=== PATIENT | male | born 1950 | race African-American/Black ===

== ENCOUNTER → 2016-09-02 | Outpatient (CLI) | payer MEDICARE, OTHER ==
[~2016-09-02] MED LIST: ALLO300T2 PO; METO-158 OR; MULT-778 OR; RIVA20TA PO; SILD100T57 OR; SIMV-8 OR
[2016-09-02 09:08] LABS: Urine RBC None Seen /hpf (0 - 3)
[2016-09-02 09:27] LABS: Basophils # (auto) 0 uL; Basophils % (auto) 0.5 % (0.0-2.0); Eosinophils # (auto) 0.3 uL; Eosinophils % (auto) 3.5 % (0.0-7.0); Hemoglobin 14.9 g/dL (13.5-17.5); Lymphocytes # (auto) 2.8 uL; Lymphocytes % (auto) 35.1 % (10.0-50.0); Mean Corpuscular Hemoglobin 31.5 pg (28.0-32.0); Mean Corpuscular Hgb Conc. 33.9 g/dL (32.0-36.0); Mean Corpuscular Volume 92.8 fL (80.0-100.0); Mean Platelet Volume 9.2 fL (7.4-10.4); Monocytes # (auto) 0.4 uL; Monocytes % (auto) 5.4 % (0.0-12.0); Neutrophils # (auto) 4.5 uL; Neutrophils % (auto) 55.5 % (37.0-80.0); Platelet Count (auto) 209 10^3/uL (140-450); Red Cell Distribution Width 13.8 % (11.6-16.0); White Blood Cell 8.1 10^3/uL (4.4-10.8)
[2016-09-02 09:56] LABS: Albumin 3.8 g/dL (3.4-5.0); BUN/Creatinine Ratio 11.7; Bilirubin, Total 0.7 mg/dL (0.2-1.0); Potassium 4.4 mmol/L (3.5-5.1); Total Protein 7.6 g/dL (6.4-8.2); Uric Acid 6.6 mg/dL (3.5-7.2)
[2016-09-02 10:03] LABS: Urine Color Yellow (Yellow)
[2016-09-02 10:04] LABS: Urine Glucose Normal (Normal)
[2016-09-02 10:06] LABS: Urine Bilirubin Negative (Negative); Urine Blood Negative /uL (Negative); Urine Ketone Negative (Negative); Urine Nitrite Negative (Negative); Urine Urobilinogen Normal (Negative)
[2016-09-02 10:08] LABS: Urine Ca Oxalate Crystal Few (None Seen)
[2016-09-02 10:09] LABS: Urine Squamous Epithelial Cell Few /hpf (<5)
== END | disposition home or self-care (01) ==
LOC: LAB 08:33
DX: R97.20 Elevated prostate specific antigen [PSA] (principal); E11.21 Type 2 diabetes mellitus with diabetic nephropathy; Z12.11 Encounter for screening for malignant neoplasm of colon; M10.079 Idiopathic gout, unspecified ankle and foot
CPT/HCPCS: 36415; 80053; 80061; 81001; 82043; 82270; 83036; 84153; 84154; 84443; 84550; 85025

== ENCOUNTER → 2016-10-27 | Outpatient (CLI) | payer MEDICARE, OTHER | END | disposition home or self-care (01) | LOC: LAB 11:00 | PROVIDERS: ATTEND Urology | DX: R97.20 Elevated prostate specific antigen [PSA] (principal) ==

== ENCOUNTER → 2017-05-12 | Outpatient (CLI) | payer MEDICARE, OTHER ==
[2017-05-13 08:06] LABS: PSA Free 1.86 ng/mL; Prostate Specific Antigen 7.2 ng/mL (0.0-4.0)
== END | disposition home or self-care (01) ==
LOC: LAB 08:59
PROVIDERS: ATTEND Urology
DX: N40.0 Benign prostatic hyperplasia without lower urinary tract symptoms (principal); R97.20 Elevated prostate specific antigen [PSA]
CPT/HCPCS: 84153; 84154

== ENCOUNTER 2017-06-16 08:26 | Day surgery (SDC) | payer MEDICARE, OTHER ==
[2017-06-12 12:48] LABS: Basophils # (auto) 0.1 uL; Basophils % (auto) 0.8 % (0.0-2.0); Eosinophils # (auto) 0.3 uL; Eosinophils % (auto) 3.2 % (0.0-7.0); Hematocrit 47.5 % (41.0-53.0); Hemoglobin 16.2 g/dL (13.5-17.5); Lymphocytes # (auto) 2.7 uL; Lymphocytes % (auto) 31.1 % (10.0-50.0); Mean Corpuscular Hemoglobin 31.8 pg (28.0-32.0); Mean Corpuscular Volume 93.5 fL (80.0-100.0); Mean Platelet Volume 11.7 fL (6.9-10.8); Monocytes # (auto) 0.7 uL; Monocytes % (auto) 7.5 % (0.0-12.0); Neutrophils % (auto) 57.4 % (37.0-80.0); Platelet Count (auto) 190 10^3/uL (140-450); Red Cell Distribution Width 13.4 % (11.8-14.3); White Blood Cell 8.7 10^3/uL (4.4-10.8)
[2017-06-12 12:53] LABS: Urine Bilirubin Negative (Negative); Urine Blood Negative /uL (Negative); Urine Color Yellow (Yellow); Urine Glucose Normal (Normal); Urine Ketone Negative (Negative); Urine Mucus FEW (None Seen); Urine Nitrite Negative (Negative); Urine RBC 1 /hpf (0 - 3); Urine Squamous Epithelial Cell FEW /hpf (<5); Urine Urobilinogen Normal (Negative)
[2017-06-12 13:08] LABS: Albumin 4.1 g/dL (3.4-5.0); BUN/Creatinine Ratio 16.1; Calcium 9.7 mg/dL (8.5-10.1); INR 0.98 (0.9-1.15); Partial Thromboplastin Time 27.5 sec (22.64-33.71); Potassium 4.1 mmol/L (3.5-5.1); Prothrombin Time 10.7 sec (9.37-12.3)
[2017-06-12 13:11] LABS: Bilirubin, Total 1.3 mg/dL (0.2-1.0); Total Protein 8.4 g/dL (6.4-8.2)
[~2017-06-16] VITALS: Ht 193 cm; Wt 126.1 kg
[~2017-06-16 08:26] MED LIST changes: -ALLO300T2 PO; +CHOL1000 PO; +COEN200C11 PO; +INSUINJ18 SC; +METF-370 PO; +OMEG100078 PO; -SILD100T57 OR; +SOTA80TA PO
[2017-06-16] MEDS ORDERED: ceFAZolin 1GM/50ML 50 ML IV ONE (09:58)
[2017-06-16] MEDS ORDERED: fentaNYL CITRATE 100 MCG/2 ML VL ONE (12:08)
[2017-06-16] MEDS ORDERED: MIDAZOLAM HCL 1MG/1ML-2 ML VIAL ONE (12:08)
[2017-06-16] MEDS ORDERED: KETOROLAC TROMETH 30 MG/ML 1ML VIAL ONE (12:18)
[2017-06-16] MEDS ORDERED: PROPOFOL 10 MG/ML 20 ML IV ONE (12:18)
[2017-06-16] MEDS ORDERED: DEXAMETHASONE SOD PHOS 10MG/1ML VIAL INJ ONE (12:18)
[2017-06-16] MEDS ORDERED: MIDAZOLAM HCL 1MG/1ML-2 ML VIAL IV PRN (12:45)
[2017-06-16] MEDS ORDERED: ACCU-CHEK COMFORT CURVE STRIP VI ONE (12:45)
[2017-06-16] MEDS ORDERED: LABETALOL HCL 5 MG/ML 4ML SYRINGE IV PRN (12:45)
[2017-06-16] MEDS ORDERED: ONDANSETRON HCL 4 MG/2 ML VIAL IV ONE (12:45)
[2017-06-16] MEDS ORDERED: KETOROLAC TROMETH 30 MG/ML 1ML VIAL IV ONE (12:45)
[2017-06-16] MEDS ORDERED: HYDROmorphone HCL 2 MG/ML VL IV PRN (12:45)
[2017-06-16] MEDS ORDERED: hydrALAZINE HCL 20 MG/ML VL IV PRN (12:45)
[2017-06-16 13:20] VITALS: BP 111/86
[2017-06-16] MEDS ORDERED: MORPHINE SULF INJ 2 MG/ML SYRINGE 1ML IV ONE (14:00)
== END 2017-06-16 13:20 | disposition home or self-care (01) ==
LOC: SUR 08:26
PROVIDERS: ATTEND Urology
DX: R97.20 Elevated prostate specific antigen [PSA] (principal); Z95.0 Presence of cardiac pacemaker; I10 Essential (primary) hypertension; I48.91 Unspecified atrial fibrillation; E11.9 Type 2 diabetes mellitus without complications; I82.409 Acute embolism and thrombosis of unspecified deep veins of unspecified lower extremity; Z98.52 Vasectomy status; E66.9 Obesity, unspecified; Z68.33 Body mass index [BMI] 33.0-33.9, adult; E78.5 Hyperlipidemia, unspecified
CPT/HCPCS: 36415; 55706; 80053; 81001; 82962; 85025; 85610; 85730; J0690; J1100; J1885; J2250; J2704; J3010

== ENCOUNTER → 2021-04-15 | Outpatient (CLI) | payer MEDICARE, OTHER ==
[~2021-04-15] MED LIST changes: +CHOL-17 PO; -CHOL1000 PO
== END | disposition home or self-care (01) ==
LOC: LAB 12:54
PROVIDERS: ATTEND Nurse Practitioner Family
DX: N39.0 Urinary tract infection, site not specified (principal); R30.0 Dysuria
CPT/HCPCS: 87086

== ENCOUNTER 2021-05-02 13:48 | Emergency (ER) | payer MEDICARE, OTHER ==
[~2021-05-02] VITALS: Ht 190.5 cm; Wt 118.8 kg
[2021-05-02 13:55] VITALS: BP 142/71
[2021-05-02 14:36] LABS: Urine Bacteria NONE SEEN /hpf (None Seen); Urine Blood 3+ /uL (Negative); Urine Mucus FEW (None Seen); Urine Specific Gravity 1.019 (1.001-1.035); Urine WBC 287 /hpf (0 - 3); Urine WBC Clumps PRESENT /hpf (None Seen)
[2021-05-02] MEDS ORDERED: cefTRIAXone W LIDOCAINE 1 GM IM IM ONE (16:45)
[2021-05-02] MEDS ORDERED: cefTRIAXone SOD 1,000 MG VL ONE (17:32)
== END 2021-05-02 18:03 | disposition home or self-care (01) ==
LOC: ER 13:48
DX: N20.0 Calculus of kidney (principal); N39.0 Urinary tract infection, site not specified; E11.9 Type 2 diabetes mellitus without complications; I10 Essential (primary) hypertension
CPT/HCPCS: 74176; 81001; 93005; 96372; 99285; J0696

== ENCOUNTER 2021-08-10 12:12 | Emergency (ER) | payer MEDICARE, OTHER ==
[~2021-08-10] VITALS: Ht 190.5 cm; Wt 114.3 kg
[2021-08-10 13:08] LABS: Urine Bacteria NONE SEEN /hpf (None Seen); Urine Blood 3+ /uL (Negative); Urine Specific Gravity 1.018 (1.001-1.035); Urine WBC 3 /hpf (0 - 3)
[2021-08-10 13:16] VITALS: BP 126/74
[2021-08-10] MEDS ORDERED: TAM04C PO (16:07)
[2021-08-10] MEDS ORDERED: CIPR-173 PO (16:07)
== END 2021-08-10 16:15 | disposition home or self-care (01) ==
LOC: ER 12:12
DX: N39.0 Urinary tract infection, site not specified (principal); N20.0 Calculus of kidney; N28.1 Cyst of kidney, acquired; E11.9 Type 2 diabetes mellitus without complications; I10 Essential (primary) hypertension
CPT/HCPCS: 74176; 81001

== ENCOUNTER 2025-04-28 09:16 | Inpatient (IN) | payer OTHER, MEDICARE ==
[~2025-04-28] VITALS: Ht 190.5 cm; Wt 125.8 kg
[~2025-04-28 09:16] MED LIST changes: +CIPR-173 PO; -COEN200C11 PO; +COEN200C25 PO; +OMEG-20 PO; -OMEG100078 PO; -SIMV-8 OR; +SIMV20TA20 OR; +TAMS-35 PO
[2025-04-28] MEDS: SODIUM CHLORIDE 0.9% 1,000 ML IV ONE (09:45)
--- NOTE | 2025-04-28 10:08 | ED.PDOC ---
General HPI Comments Be uLcio is a 75-year-old male, with past medical history of prostate ca. (2018), HTN, afib, DVT, pacemaker, and DM2. The patient came to the ED with chief complain of 1 day of hematuria, red dark urine "wine color" with clots associated with mild burning sensation after voiding. Today, the patient reports the urine continues with blood clots, this prompted his visit to the ED. The patient also reports he is on blood thinners: Xarelto. The patient denies fever, chills, diarrhea, vomit, back pain, abdominal pain, trauma or other symptoms. In the ED, BP: 145/79mmHg, Hr: 68bpm. Urology consult was placed, urology requested 3 way Rich catheter with continue irrigation. The patient will be admitted for further management. Chief Complaint: Urinary Time Seen by MD: 09:22 Primary Care Provider: MIKE Reviewed notes: Nurses Notes, Medications, Allergies Allergies: Coded Allergies: NO KNOWN ALLERGIES (Unverified , 06/12/17) Home Meds Active Scripts Tamsulosin Hcl (Flomax) 0.4 Mg Cap, 0.4 MG PO DAILY for 20 Days, #20 CAP Prov:NORA MEDLEY 08/10/21 Ciprofloxacin Hcl (Cipro) 500 Mg Tab, 500 MG PO BID for 10 Days, #20 TAB Prov:NORA MEDLEY 08/10/21 Reported Medications Cholecalciferol (Vitamin D3) 1,000 Unit Tab, 1000 UNIT PO DAILY, TAB 06/12/17 [place]-3 Fatty Acids (FISH OIL) 1,000 Mg Cap, 1000 MG PO BID, CAP 06/12/17 Coenzyme Q10 (Coq10) 200 Mg Cap, 200 MG PO DAILY, CAP 06/12/17 Sotalol Hcl (Sotalol Hcl) 80 Mg Tab, 0.5 TAB PO TID, #60 TAB 5 Refills 06/12/17 Insulin Aspart Protamine & Asp (Novolog Mix 70/30 Prefill (70-30) 100 Unit/ml) 1 Inj Inj, 30 UNITS SC QPM, INJ 06/12/17 Insulin Aspart Protamine & Asp (Novolog Mix 70/30 Prefill (70-30) 100 Unit/ml) 1 Inj Inj, 36 UNITS SC QAM, INJ 06/12/17 Metformin Hydrochloride (Metformin Hcl) 500 Mg Tab, 500 MG PO IBID for 30 Days, MG 06/12/17 Rivaroxaban (XARELTO) 20 Mg Tab, 1 TAB PO 4XWEEKLY, #30 TAB 11 Refills 04/16/15 Multiple Vitamins W/ Minerals (MULTI FOR HIM) For Him Cap, 1 HIM OR DAILY 04/13/12 Simvastatin (Simvastatin) 20 Mg Tab, 20 MG OR DAILY 04/13/12 Metoprolol Tartrate (Metoprolol Tartrate) 50 Mg Tab, 50 MG OR BID 04/13/12 Information Source: Patient Mode of Arrival: Ambulatory Severity: Moderate Timing: Days Duration: Since onset Onset: Spontaneous Symptoms: Dysuria, Hematuria Past Medical History PAST MEDICAL HISTORY: AFIB, DM, HTN Past Medical History (Other): Prostate ca (2018) DVT (1996) Surgical History: Pacemaker Surgical History (Other): Pacemaker Family History Family History: Reviewed,noncontributory to illness Social History Smoker: Non-Smoker Alcohol: Occasionally Drugs: Denies Drug Use Lives In: Home Constitutional: denies: chills, diaphoresis, fatigue, fever, malaise, sweats, weakness, others EENTM: denies: blurred vision, double vision, ear bleeding, ear discharge, ear drainage, ear pain, ear ringing, eye pain, eye redness, hearing loss, mouth pain, mouth swelling, nasal discharge, nose bleeding, nose congestion, nose pain, photophobia, tearing, throat pain, throat swelling, voice changes, others Respiratory: denies: cough, hemoptysis, orthopnea, SOB at rest, shortness of breath, SOB with excertion, stridor, wheezing, others Cardiovascular: denies: chest pain, dizzy spells, diaphoresis, Dyspnea on exertion, edema, irregular heart beat, left arm pain, lightheadedness, palpitations, PND, syncope, others Gastrointestinal: denies: abdomen distended, abdominal pain, blood streaked bowels, constipated, diarrhea, dysphagia, difficulty swallowing, hematemesis, melena, nausea, poor appetite, poor fluid intake, rectal bleeding, rectal pain, vomiting, others Genitourinary: reports: dysuria, hematuria (dark red "Wine-like" color with blood clots) Neurological: denies: dizziness, fainting, headache, left sided numbness, left sided weakness, numbness, paresthesia, pre-existing deficit, right sided numbness, right sided weakness, seizure, speech problems, tingling, tremors, weakness, others Musculoskeletal: denies: back pain, gout, joint pain, joint swelling, muscle pain, muscle stiffness, neck pain, others Integumetry: denies: bruises, change in color, change in hair/nails, dryness, laceration, lesions, lumps, rash, wounds, others Allergic/Immunocompromised: denies: Difficulty Healing, Frequent Infections, Hives, Itching, others Hematologic/Lymphatic: denies: anemia, blood clots, easy bleeding, easy bruising, swollen glands, others Endocrine: denies: excessive hunger, excessive sweating, excessive thirst, excessive urination, flushing, intolerance to cold, intolerance to heat, unexplained weight gain, unexplained weight loss, others Psychiatric: denies: anxiety, bipolar disorder, depression, hopeless, panic disorder, schizophrenia, sleepless, suicidal, others Physical Exam Exam Comments Alert, oriented x3. General Appearance: No Apparent Distress HEENT: Normal ENT Inspection Neck: Full Range of Motion, Non-Tender, Normal, Normal Inspection Respiratory: Chest Non-Tender, Lungs Clear, No Accessory Muscle Use, No Respiratory Distress, Normal Breath Sounds Cardiovascular: No Edema, No JVD, No Murmur, No Gallop, Normal Peripheral Pul ses, Regular Rate/Rhythm Breast Exam: Deferred Gastrointestinal: No Organomegaly, Non Tender, No Pulsatile Mass, Normal Bowel Sounds, Soft Genitalia: Deferred Pelvic: Deferred Rectal: Deferred Extremities: No calf tenderness, Normal capillary refill, Normal inspection, Normal range of motion, Non-tender, No pedal edema, Other (wearing compressive stockings. ) Musculoskeletal : Apperance: Normal Neurologic: Alert, shield runner II-XII nml as Tested, No Motor Deficits, Normal Affect, Normal Mood, No Sensory Deficits Cerebellar Function: Normal Reflexes: Normal Skin: Dry, Normal Color, Warm Lymphatic: No Adenopathy Was a procedure done? Was a procedure done?: No Differential Diagnosis Kidney stone (Female): N/A Kidney stone (Male): Urolithiasis, Urinary tract infection, Other (prostate ca.) Penile/Scrotal: N/A Urinary Problem (Male): Prostatitis, N/A Urinary Problem (Female): N/A X-Ray, Labs, Meds, VS Vital Signs Date Time Temp Pulse Resp B/P (MAP) Pulse Ox O2 Delivery O2 Flow Rate FiO2 04/28/25 10:10 97.8 65 18 134/79 (97) 96 97.8 04/28/25 10:10 65 04/28/25 09:17 97.9 68 18 145/79 98 97.9 Lab Test 04/28/25 10:01 Range/Units White Blood Count 6.9 4.4-10.8 10^3/uL Red Blood Count 4.67 4.5-5.90 10^6/uL Hemoglobin 14.5 13.5-17.5 g/dL Hematocrit 43.2 41.0-53.0 % Mean Corpuscular Volume 92.5 80.0-100.0 fL Mean Corpuscular Hemoglobin 31.1 28.0-32.0 pg Mean Corpuscular Hemoglobin Concent 33.6 32.0-36.0 g/dL Red Cell Distribution Width 13.5 11.8-14.3 % Platelet Count 177 140-450 10^3/uL Mean Platelet Volume 8.2 6.9-10.8 fL Neutrophils (%) (Auto) 60.2 37.0-80.0 % Lymphocytes (%) (Auto) 26.5 10.0-50.0 % Monocytes (%) (Auto) 8.0 0.0-12.0 % Eosinophils (%) (Auto) 4.1 0.0-7.0 % Basophils (%) (Auto) 1.2 0.0-2.0 % Neutrophils # (Auto) 4.2 1.6-8.6 10 ^3/uL Lymphocytes # (Auto) 1.8 0.4-5.4 10 ^3/uL Monocytes # (Auto) 0.6 0-1.3 10 ^3/uL Eosinophils # (Auto) 0.3 0-0.8 10 ^3/uL Basophils # (Auto) 0.1 0-0.2 10 ^3/uL Nucleated Red Blood Cells 0.0 % Sodium Level 143 136-145 mmol/L Potassium Level 4.2 3.5-5.1 mmol/L Chloride Level 103 98-107 mmol/L Carbon Dioxide Level 31 20-31 mmol/L Anion Gap 9 5-15 Blood Urea Nitrogen 11 9-23 mg/dL Creatinine 1.20 0.700-1.30 mg/dL Glomerular Filtration Rate Calc 63 >90 mL/min BUN/Creatinine Ratio 9.2 L 10.0-20.0 Serum Glucose 93 74-106 mg/dL Calcium Level 9.7 8.7-10.4 mg/dL Free Prostate Specific Antigen Pending Percent Free Prostate Specific Ag Pending Prostate Specific Antigen Total Pending Current Medications Medications (Trade) Dose Ordered Sig/Eduard Route Start Time Stop Time Status Last Admin Sodium Chloride 1,000 ml @ 1,000 mls/hr Q1H ONCE IV 04/28/25 09:45 04/28/25 11:09 DC 04/28/25 09:45 X-Ray, Labs, Meds, VS Comment 10:25 The patient was re-evaluated. Alert, oriented x3 VS: 134/79mmHg. HR: 65bpm Labs results are still pending at this time. 11:30 The patient was re-evaluated. Alert, oriented x3 Urinary results are still pending at this time. The patient will be admitted for further assessment and management. Time of 1ST Reevaluation: :25 Reevaluation 1ST: Unchanged Patient Education/Counseling: Diagnosis, Treatment, Prognosis, Need For Follow Up Family Education/Counseling: No Family Present SEPSIS Sepsis Screen Date sepsis recognized/suspect: Apr 28, 2025 Time Sepsis recognized/suspect: 918 Recent Procedure: No On Antibiotic Therapy: No Respiratory Rate >20: No Heart Rate >90: No Temp<36 C (96.8 F) or >38.3 C: No SBP <90 or MAP <65 mmHG: No New Acute Mental Status Change: No Is the patient on CPAP, BIPAP,: No Physician Orders Urinalysis (04/28/25 09:39) * Urology Consult (04/28/25 09:39) 3 Way Rich QSHIFT (04/28/25 09:56) Ct Ab Pel Wo Con-No Oral Or Iv (04/28/25 11:05) Psa Total+% Free (04/28/25 11:05) Vital Signs Date Time Temp Pulse Resp B/P (MAP) Pulse Ox O2 Delivery O2 Flow Rate FiO2 04/28/25 10:10 97.8 65 18 134/79 (97) 96 97.8 04/28/25 10:10 65 04/28/25 09:17 97.9 68 18 145/79 98 97.9 Laboratory Tests Test 04/28/25 10:01 White Blood Count 6.9 10^3/uL (4.4-10.8) Medications Medications Dose Ordered Sig/Eduard Route Start Time Stop Time Status Last Admin Dose Admin Sodium Chloride 1,000 ml @ 1,000 mls/hr Q1H ONCE IV 04/28/25 09:45 04/28/25 11:09 DC 04/28/25 09:45 Departure 1 Departure Time of Disposition: 10:27 Impression: Primary Impression: Hematuria Disposition: ADMITTED INPATIENT Admit to: Med Surg Condition: Good Comments Goals of care discussed with the patient > 35 min. Discussed plan of care with Dr. Stein Code status: Full code PCP: Dr. Nelson, Urologist: Dr. Dow/ AMADO Blum. Plan discussed with: Patient, the patient agrees with the admission plan. Critical Care Note Critical Care Time?: No Stability Stability form required: No Heart Score Heart Score: Heart Score Response (Comments) Value History N/A 0 EKG N/A 0 Age N/A 0 Risk Factors N/A 0 Troponin N/A 0 Total 0 MALGORZATA GARCIA RESIDENT Apr 28, 2025 10:08
[2025-04-28 10:24] LABS: Hematocrit 43.2 % (41.0-53.0); Hemoglobin 14.5 g/dL (13.5-17.5); Mean Corpuscular Hemoglobin 31.1 pg (28.0-32.0); Mean Corpuscular Volume 92.5 fL (80.0-100.0); Nucleated Red Blood Cells % 0.0 %
[2025-04-28 10:29] LABS: Chloride 103 mmol/L (98-107); Potassium 4.2 mmol/L (3.5-5.1); Sodium 143 mmol/L (136-145)
[2025-04-28 10:30] LABS: Anion Gap 9 (5-15); Carbon Dioxide 31 mmol/L (20-31)
[2025-04-28 10:31] LABS: Calcium 9.7 mg/dL (8.7-10.4)
[2025-04-28 10:36] LABS: BUN/Creatinine Ratio 9.2 (10.0-20.0); Blood Urea Nitrogen 11 mg/dL (9-23); Glucose 93 mg/dL (74-106)
--- NOTE | 2025-04-28 11:10 | DVHINCON2 ---
Date of service: Apr 28, 2025 Referring Physician Hospitalist Reason for Consultation Gross hematuria History of Present Illness Patient known to me for history of prostate cancer, s/p Brachytherapy 2017. He was last seen in clinic in October 2024. He is on Xarelto. 75-year-old male, with past medical history of prostate ca. (2018), HTN, afib, DVT, pacemaker, and DM2. The patient came to the ED with chief complain of 1 day of hematuria, red dark urine "wine color" with clots associated with mild burning sensation after voiding. Today, the patient reports the urine continues with blood clots, this prompted his visit to the ED. The patient also reports he is on blood thinners: Xarelto. The patient denies fever, chills, diarrhea, vomit, back pain, abdominal pain, trauma or other symptoms. In the ED, BP: 145/79mmHg, Hr: 68bpm. Urology consult was placed, urology requested 3 way Rich catheter with continue irrigation. The patient will be admitted for further management. Chief Complaint: Urinary Primary Care Provider: MIKE Reviewed notes: Nurses Notes, Medications, Allergies Allergies: Coded Allergies: NO KNOWN ALLERGIES (Unverified , 06/12/17) Home Meds Active Scripts Tamsulosin Hcl (Flomax) 0.4 Mg Cap, 0.4 MG PO DAILY for 20 Days, #20 CAP Prov:NORA MEDLEY 08/10/21 Ciprofloxacin Hcl (Cipro) 500 Mg Tab, 500 MG PO BID for 10 Days, #20 TAB Prov:NORA MEDLEY 08/10/21 Reported Medications Cholecalciferol (Vitamin D3) 1,000 Unit Tab, 1000 UNIT PO DAILY, TAB 06/12/17 [place]-3 Fatty Acids (FISH OIL) 1,000 Mg Cap, 1000 MG PO BID, CAP 06/12/17 Coenzyme Q10 (Coq10) 200 Mg Cap, 200 MG PO DAILY, CAP 06/12/17 Sotalol Hcl (Sotalol Hcl) 80 Mg Tab, 0.5 TAB PO TID, #60 TAB 5 Refills 06/12/17 Insulin Aspart Protamine & Asp (Novolog Mix 70/30 Prefill (70-30) 100 Unit/ml) 1 Inj Inj, 30 UNITS SC QPM, INJ 06/12/17 Insulin Aspart Protamine & Asp (Novolog Mix 70/30 Prefill (70-30) 100 Unit/ml) 1 Inj Inj, 36 UNITS SC QAM, INJ 06/12/17 Metformin Hydrochloride (Metformin Hcl) 500 Mg Tab, 500 MG PO IBID for 30 Days, MG 06/12/17 Rivaroxaban (XARELTO) 20 Mg Tab, 1 TAB PO 4XWEEKLY, #30 TAB 11 Refills 04/16/15 Multiple Vitamins W/ Minerals (MULTI FOR HIM) For Him Cap, 1 HIM OR DAILY 04/13/12 Simvastatin (Simvastatin) 20 Mg Tab, 20 MG OR DAILY 04/13/12 Metoprolol Tartrate (Metoprolol Tartrate) 50 Mg Tab, 50 MG OR BID 04/13/12 Information Source: Patient Mode of Arrival: Ambulatory Severity: Moderate Timing: Days Duration: Since onset Onset: Spontaneous Symptoms: Dysuria, Hematuria Past Medical History AFIB, DM, HTN, Past Medical History (Other): Prostate ca (2017) DVT (1996) Past Surgical History Prostate biopsy Brachytherapy Pacemaker Allergies: Coded Allergies: NO KNOWN ALLERGIES (Unverified , 06/12/17) Home Meds Active Scripts Tamsulosin Hcl (Flomax) 0.4 Mg Cap, 0.4 MG PO DAILY for 20 Days, #20 CAP Prov:NORA MEDLEY 08/10/21 Ciprofloxacin Hcl (Cipro) 500 Mg Tab, 500 MG PO BID for 10 Days, #20 TAB Prov:NORA MEDLEY 08/10/21 Reported Medications Cholecalciferol (Vitamin D3) 1,000 Unit Tab, 1000 UNIT PO DAILY, TAB 06/12/17 [place]-3 Fatty Acids (FISH OIL) 1,000 Mg Cap, 1000 MG PO BID, CAP 06/12/17 Coenzyme Q10 (Coq10) 200 Mg Cap, 200 MG PO DAILY, CAP 06/12/17 Sotalol Hcl (Sotalol Hcl) 80 Mg Tab, 0.5 TAB PO TID, #60 TAB 5 Refills 06/12/17 Insulin Aspart Protamine & Asp (Novolog Mix 70/30 Prefill (70-30) 100 Unit/ml) 1 Inj Inj, 30 UNITS SC QPM, INJ 06/12/17 Insulin Aspart Protamine & Asp (Novolog Mix 70/30 Prefill (70-30) 100 Unit/ml) 1 Inj Inj, 36 UNITS SC QAM, INJ 06/12/17 Metformin Hydrochloride (Metformin Hcl) 500 Mg Tab, 500 MG PO IBID for 30 Days, MG 06/12/17 Rivaroxaban (XARELTO) 20 Mg Tab, 1 TAB PO 4XWEEKLY, #30 TAB 11 Refills 04/16/15 Multiple Vitamins W/ Minerals (MULTI FOR HIM) For Him Cap, 1 HIM OR DAILY 04/13/12 Simvastatin (Simvastatin) 20 Mg Tab, 20 MG OR DAILY 04/13/12 Metoprolol Tartrate (Metoprolol Tartrate) 50 Mg Tab, 50 MG OR BID 04/13/12 Review of Systems Constitutional: denies: chills, diaphoresis, fatigue, fever, malaise, sweats, weakness, others EENTM: denies: blurred vision, double vision, ear bleeding, ear discharge, ear drainage, ear pain, ear ringing, eye pain, eye redness, hearing loss, mouth pain, mouth swelling, nasal discharge, nose bleeding, nose congestion, nose pain, photophobia, tearing, throat pain, throat swelling, voice changes, others Respiratory: denies: cough, hemoptysis, orthopnea, SOB at rest, shortness of breath, SOB with excertion, stridor, wheezing, others Cardiovascular: denies: chest pain, dizzy spells, diaphoresis, Dyspnea on exertion, edema, irregular heart beat, left arm pain, lightheadedness, palpitations, PND, syncope, others Gastrointestinal: denies: abdomen distended, abdominal pain, blood streaked bowels, constipated, diarrhea, dysphagia, difficulty swallowing, hematemesis, melena, nausea, poor appetite, poor fluid intake, rectal bleeding, rectal pain, vomiting, others Genitourinary: reports: dysuria, hematuria (dark red "Wine-like" color with blood clots) Neurological: denies: dizziness, fainting, headache, left sided numbness, left sided weakness, numbness, paresthesia, pre-existing deficit, right sided numbness, right sided weakness, seizure, speech problems, tingling, tremors, weakness, others Musculoskeletal: denies: back pain, gout, joint pain, joint swelling, muscle pain, muscle stiffness, neck pain, others Integumetry: denies: bruises, change in color, change in hair/nails, dryness, laceration, lesions, lumps, rash, wounds, others Allergic/Immunocompromised: denies: Difficulty Healing, Frequent Infections, Hives, Itching, others Hematologic/Lymphatic: denies: anemia, blood clots, easy bleeding, easy bruising, swollen glands, others Endocrine: denies: excessive hunger, excessive sweating, excessive thirst, excessive urination, flushing, intolerance to cold, intolerance to heat, unexp lained weight gain, unexplained weight loss, others Psychiatric: denies: anxiety, bipolar disorder, depression, hopeless, panic disorder, schizophrenia, sleepless, suicidal, others Vital Signs Vital Signs Date Time Temp Pulse Resp B/P (MAP) Pulse Ox O2 Delivery O2 Flow Rate FiO2 04/28/25 10:10 97.8 65 18 134/79 (97) 96 97.8 Physical Exam Exam Comments Alert, oriented x3. General Appearance: No Apparent Distress HEENT: Normal ENT Inspection Neck: Full Range of Motion, Non-Tender, Normal, Normal Inspection Respiratory: Chest Non-Tender, Lungs Clear, No Accessory Muscle Use, No Respiratory Distress, Normal Breath Sounds Cardiovascular: No Edema, No JVD, No Murmur, No Gallop, Normal Peripheral Pulses, Regular Rate/Rhythm Breast Exam: Deferred Gastrointestinal: No Organomegaly, Non Tender, No Pulsatile Mass, Normal Bowel Sounds, Soft Genitalia: Deferred Pelvic: Deferred Rectal: Deferred Extremities: No calf tenderness, Normal capillary refill, Normal inspection, Normal range of motion, Non-tender, No pedal edema, Other (wearing compressive stockings. 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 nml as Tested, No Motor Deficits, Normal Affect, Normal Mood, No Sensory Deficits Cerebellar Function: Normal Reflexes: Normal Skin: Dry, Normal Color, Warm Lymphatic: No Adenopathy Labs/Diagnostic Data Labs Test 04/28/25 10:01 Range/Units White Blood Count 6.9 4.4-10.8 10^3/uL Red Blood Count 4.67 4.5-5.90 10^6/uL Hemoglobin 14.5 13.5-17.5 g/dL Hematocrit 43.2 41.0-53.0 % Mean Corpuscular Volume 92.5 80.0-100.0 fL Mean Corpuscular Hemoglobin 31.1 28.0-32.0 pg Mean Corpuscular Hemoglobin Concent 33.6 32.0-36.0 g/dL Red Cell Distribution Width 13.5 11.8-14.3 % Platelet Count 177 140-450 10^3/uL Mean Platelet Volume 8.2 6.9-10.8 fL Neutrophils (%) (Auto) 60.2 37.0-80.0 % Lymphocytes (%) (Auto) 26.5 10.0-50.0 % Monocytes (%) (Auto) 8.0 0.0-12.0 % Eosinophils (%) (Auto) 4.1 0.0-7.0 % Basophils (%) (Auto) 1.2 0.0-2.0 % Neutrophils # (Auto) 4.2 1.6-8.6 10 ^3/uL Lymphocytes # (Auto) 1.8 0.4-5.4 10 ^3/uL Monocytes # (Auto) 0.6 0-1.3 10 ^3/uL Eosinophils # (Auto) 0.3 0-0.8 10 ^3/uL Basophils # (Auto) 0.1 0-0.2 10 ^3/uL Nucleated Red Blood Cells 0.0 % Sodium Level 143 136-145 mmol/L Potassium Level 4.2 3.5-5.1 mmol/L Chloride Level 103 98-107 mmol/L Carbon Dioxide Level 31 20-31 mmol/L Anion Gap 9 5-15 Blood Urea Nitrogen 11 9-23 mg/dL Creatinine 1.20 0.700-1.30 mg/dL Glomerular Filtration Rate Calc 63 >90 mL/min BUN/Creatinine Ratio 9.2 L 10.0-20.0 Serum Glucose 93 74-106 mg/dL Calcium Level 9.7 8.7-10.4 mg/dL Assessment Gross hematuria Personal history of prostate cancer Plan/Recommendation 3 way Rich with CBI CT Scan AP NC Plan discussed with: Patient, Other STEFANO MEZA MD Apr 28, 2025 11:10
[2025-04-28 13:08] LABS: Urine Protein, UAD 1+ (Negative)
--- NOTE | 2025-04-28 14:35 | DVH ---
CLINICAL HISTORY: gross hematuria TECHNIQUE: CT of the abdomen and pelvis was performed without IV contrast. This exam was performed according to our departmental dose optimization program. Up-to-date CT equipment and radiation dose reduction techniques are utilized as appropriate. CTDI 25 DLP 1463 COMPARISON: None FINDINGS: Abdomen/Pelvis: The spleen, pancreas, adrenal glands, gallbladder, liver, and bladder are grossly unremarkable. There are therapy seeds within the prostate gland. Hypodense lesions within both kidneys are incompletely characterized due to lack of IV contrast. The abdominal aorta is normal in course and caliber. There are minimal atherosclerotic calcifications. There is no free intraperitoneal air or fluid. There is no enlarged abdominal pelvic lymph node. There is no bowel wall thickening or dilatation. The appendix is normal. There is a small fat containing left inguinal hernia. Other: The imaged lower thorax demonstrates right-sided pacer wires. No acute osseous abnormality is evident. Impression: No acute noncontrast CT abnormality in the abdomen or pelvis. R MACHINE OPERATOR JAZMIN
[2025-04-28] MEDS ORDERED: SODIUM CHLORIDE 0.9% 1,000 ML IV SCH (15:30)
--- NOTE | 2025-04-28 16:38 | DVH ---
CLINICAL HISTORY: RULE OUT DVT TECHNIQUE: Color and duplex doppler imagine of the bilateral lower extremity veins was performed. Ves micheal compression and augmentation if possible was also performed. COMPARISON: None FINDINGS: Right Lower Extremity: Right common femoral vein: Normal compressibility and flow. Right superficial femoral vein: Normal compressibility and flow. Right popliteal vein: Normal compressibility and flow. Left Lower Extremity: Left common femoral vein: Normal compressibility and flow. Left superficial femoral vein: Normal compressibility and flow. Left popliteal vein: Normal compressibility and flow. IMPRESSION: NO SONOGRAPHIC EVIDENCE FOR DEEP VENOUS THROMBOSIS IN THE BILATERAL LOWER EXTREMITY VEINS.
[2025-04-28 16:45] LABS: INR 1.09 (0.9-1.15); Partial Thromboplastin Time 29.3 SEC (24.5-34.5); Prothrombin Time 11.5 sec (9.3-11.8)
[2025-04-28 16:48] LABS: Alanine Aminotransferase 21.0 U/L (7-40); Albumin 4.5 g/dL (3.2-4.8); Alkaline Phosphatase 54.0 U/L (46-116); Total Protein 7.5 g/dL (5.7-8.2)
[2025-04-28 16:50] LABS: Bilirubin, Direct 0.6 mg/dL (<0.3); Bilirubin, Total 2.3 mg/dL (0.2-1.0)
[2025-04-28] MEDS: INSULIN LISPRO (HUMAN) 100 UNITS/ML ML SC SCH (17:00)
--- NOTE | 2025-04-28 17:04 | DVH ---
CHEST RADIOGRAPH Indication: Pulmonary congestion> Technique: XY CHEST XRAY 1 VIEW Comparison: None FINDINGS: Left chest dual lead cardiac pacer device The cardiac silhouette is unremarkable. The lungs demonstrate no pulmonary airspace consolidation. Th e pulmonary vasculature is mildly prominent. There is no pleural effusion. There is no pneumothorax. IMPRESSION: Mild pulmonary vascular congestion
[2025-04-28] MEDS: ACCU-CHEK COMFORT CURVE STRIP VI SCH (17:10)
[2025-04-28 17:11] VITALS: PULSE 74; RESP 19; O2SAT 95
--- NOTE | 2025-04-28 17:11 | DVHHP2 ---
JEFF MUNSON RESIDENT 04/28/25 1711: History of Present Illness History of Present Illness Be Lucio is a 75-year-old male, with past medical history of prostate Carcinoma (2018), status post brachytherapy in 2018, HTN, Atrial fibrillation, DVT, pacemaker, and DM2, internal hemorrhoids The patient came to the ED with chief complain of 1 day of hematuria, red dark urine "wine color" with clots associated with mild burning sensation after voiding. Today, the patient reports the urine continues with blood clots, this prompted his visit to the ED. The patient also reports he is on blood thinners: Xarelto. The patient denies fever, chills, diarrhea, vomit, back pain, abdominal pain, trauma or other symptoms. Initial lab workup revealed hemoglobin 14.5, serum bilirubin 2.3. AST 28, ALT 21, creatinine, urinalysis revealed blood 3+, leukocyte esterase trace, RBC 8328, WBC 224. CT abdomen and pelvis revealed- No acute noncontrast CT abnormality in the abdomen or pelvis. Study of the bilateral lower extremity negative for DVT. PMH-prostate Carcinoma (2018), HTN, Atrial fibrillation, DVT, pacemaker, and DM2 PSH-pacemaker placement Allergy- NKDA Personal History/ Social History- denies smoking/occasional alcoholic on holiday, denies using any substance, lives with the at home Patient is seen by urologist Dr. Dow , recommended for [address] catheter [address] CT abdomen and pelvis without contrast. Review of Systems Review of Systems Cardiovascular- deny acute chest pain or shortness of breath or cough or palpitation Respiratory denies cough or short of breath or wheezing Gastrointestinal- denies any rectal bleeding, nausea or vomiting Musculoskeletal-denies acute joint swelling or tenderness or redness Neurological- denies acute dysarthria, dysphagia, change in vision Psychiatry- denies depression or SI or HI Skin- denies acute rash or purpura. Allergies: Coded Allergies: NO KNOWN ALLERGIES (Unverified , 06/12/17) Medications Current Medications Medications Dose Ordered Sig/Eduard Route Start Time Stop Time Status Last Admin Dose Admin Sodium Chloride 1,000 ml @ 120 mls/hr Q8H20M IV 04/28/25 15:45 Ceftriaxone Sodium 50 ml @ 100 mls/hr DAILY@09 IV 04/29/25 09:00 Insulin Human Lispro AC SC 04/28/25 17:00 Diagnostic Test (Pha) 1 strip AC 04/28/25 17:00 Exam Vital Signs Vital Signs Date Time Temp Pulse Resp B/P (MAP) Pulse Ox O2 Delivery O2 Flow Rate FiO2 04/28/25 10:10 97.8 65 18 134/79 (97) 96 97.8 Exam General examination- awake, alert, oriented HEENT- PEERLA, no acute nasal discharge Cardiovascular- S1-S2 audible, rate and rhythm regular, no murmur Respiratory- CTAB, no wheeze or rhonchi Gastrointestinal-nontender, bowel sound+. Nondistended Musculoskeletal-no acute joint swelling or tenderness or redness Lower extremity- + bilateral leg edema+ Renal system-no renal angle tenderness Neurological- cranial nerves intact, no acute dysarthria or dysphagia Psychiatry- denies depression or SI or HI Skin- no acute rash or purpura Labs/Xrays Labs Test 04/28/25 16:13 04/28/25 10:01 04/28/25 09:41 Range/Units Prothrombin Time 11.5 9.3-11.8 sec Prothrombin Time INR 1.09 0.9-1.15 Activated Partial Thromboplast Time 29.3 24.5-34.5 SEC Lactic Acid Level 1.1 0.4-2.0 mmol/L Total Bilirubin 2.3 H 0.2-1.0 mg/dL Direct Bilirubin 0.6 H <0.3 mg/dL Aspartate Amino Transferase (AST) 28 13-40 U/L Alanine Aminotransferase (ALT) 21 7-40 U/L Alkaline Phosphatase 54 46-116 U/L Total Protein 7.5 5.7-8.2 g/dL Albumin 4.5 3.2-4.8 g/dL White Blood Count 6.9 4.4-10.8 10^3/uL Red Blood Count 4.67 4.5-5.90 10^6/uL Hemoglobin 14.5 13.5-17.5 g/dL Hematocrit 43.2 41.0-53.0 % Mean Corpuscular Volume 92.5 80.0-100.0 fL Mean Corpuscular Hemoglobin 31.1 28.0-32.0 pg Mean Corpuscular Hemoglobin Concent 33.6 32.0-36.0 g/dL Red Cell Distribution Width 13.5 11.8-14.3 % Platelet Count 177 140-450 10^3/uL Mean Platelet Volume 8.2 6.9-10.8 fL Neutrophils (%) (Auto) 60.2 37.0-80.0 % Lymphocytes (%) (Auto) 26.5 10.0-50.0 % Monocytes (%) (Auto) 8.0 0.0-12.0 % Eosinophils (%) (Auto) 4.1 0.0-7.0 % Basophils (%) (Auto) 1.2 0.0-2.0 % Neutrophils # (Auto) 4.2 1.6-8.6 10 ^3/uL Lymphocytes # (Auto) 1.8 0.4-5.4 10 ^3/uL Monocytes # (Auto) 0.6 0-1.3 10 ^3/uL Eosinophils # (Auto) 0.3 0-0.8 10 ^3/uL Basophils # (Auto) 0.1 0-0.2 10 ^3/uL Nucleated Red Blood Cells 0.0 % Sodium Level 143 136-145 mmol/L Potassium Level 4.2 3.5-5.1 mmol/L Chloride Level 103 98-107 mmol/L Carbon Dioxide Level 31 20-31 mmol/L Anion Gap 9 5-15 Blood Urea Nitrogen 11 9-23 mg/dL Creatinine 1.20 0.700-1.30 mg/dL Glomerular Filtration Rate Calc 63 >90 mL/min BUN/Creatinine Ratio 9.2 L 10.0-20.0 Serum Glucose 93 74-106 mg/dL Calcium Level 9.7 8.7-10.4 mg/dL Urine Color Light-red Yellow Urine Clarity Ex.turbid Clear Urine pH 5.5 5.0-9.0 Urine Specific [place] 1.015 1.001-1.035 Urine Protein 1+ H Negative Urine Ketones Negative Negative Urine Blood 3+ H Negative /uL Urine Nitrite Negative Negative Urine Bilirubin Negative Negative Urine Urobilinogen Normal Negative mg/dL Urine Leukocyte Esterase Trace Negative /uL Urine RBC 8328 0 - 3 /hpf Urine Microscopic WBC 224 H 0-3 /HPF Urine Squamous Epithelial Cells None seen <5 /hpf Urine Bacteria None seen None Seen /hpf Urine Glucose Normal Normal mg/dL SEPSIS Sepsis Screen Date sepsis recognized/suspect: Apr 28, 2025 Time Sepsis recognized/suspect: 918 Recent Procedure: No On Antibiotic Therapy: No Respiratory Rate >20: No Heart Rate >90: No Temp<36 C (96.8 F) or >38.3 C: No SBP <90 or MAP <65 mmHG: No New Acute Mental Status Change: No Is the patient on CPAP, BIPAP,: No Physician Orders * Urology Consult (04/28/25 09:39) 3 Way Rich QSHIFT (04/28/25 09:56) Ct Ab Pel Wo Con-No Oral Or Iv (04/28/25 11:05) Psa Total+% Free (04/28/25 11:05) Admit (04/28/25 15:24) Allergies (04/28/25:) Code Status (04/28/25:) Complete Blood Count (04/29/25 04:00) Comprehensive Metabolic Panel (04/29/25 04:00) Cardiac Diet-2gna,Lofat,Lochol (04/28/25 Dinner) Notify Md Of Changes From Base (04/28/25:24) Electrocardigram (04/28/25 15:28) Chest Xray 1 View (04/28/25 15:28) Urine Bacterial Culture (04/28/25 15:28) Sodium Chloride 0.9% (04/28/25 15:45) Ceftriaxone 1gm/50ml (Rocephin) (04/29/25 09:00) B-Type Natriuretic Peptide (04/28/25 15:39) Insulin Lispro (Human) (Humalog) (04/28/25 17:00) Echo 2d Mode Cardiac Dop (04/28/25 15:39) Bilat Lower Dvt (04/28/25 15:39) Glucose Blood (Accu-Chek Comfort Curve T (04/28/25 17:00) Vital Signs Date Time Temp Pulse Resp B/P (MAP) Pulse Ox O2 Delivery O2 Flow Rate FiO2 04/28/25 10:10 97.8 65 18 134/79 (97) 96 97.8 04/28/25 10:10 65 04/28/25 09:17 97.9 68 18 145/79 98 97.9 Laboratory Tests Test 04/28/25 10:01 04/28/25 16:13 White Blood Count 6.9 10^3/uL (4.4-10.8) Lactic Acid Level 1.1 mmol/L (0.4-2.0) Medications Medications Dose Ordered Sig/Eduard Route Start Time Stop Time Status Last Admin Dose Admin Sodium Chloride 1,000 ml @ 1,000 mls/hr Q1H ONCE IV 04/28/25 09:45 04/28/25 11:09 DC 04/28/25 09:45 1,000 MLS/HR Assessment/Plan Assessment/Plan Assessment and plan-patient came with the hematuria, seen by Urology, recommended for CT scan of the abdomen and pelvis with the contrast, ordered Rich's catheter 3 way, pending uterine culture with suspected UTI. Started on ceftriaxone. Pending PSA. # acute hematuria likely due to UTI # rule out medication induced hematuria/renal cell carcinoma # history of prostatic carcinoma, status post brachytherapy in 2018 -patient was seen by urologist recommended for CT abdomen and pelvis without contrast, Rich's three-way catheter -ordered ceftriaxone 1 g IV daily -pending urine culture -restarted home medication finasteride -pending PSA level ordered by Urology #History of atrial fibrillation, DVT, on Xarelto at home # on Pacemaker # history of heart failure with preserved ejection fraction, no acute exacerbation # bilateral leg edema, rule out DVT -Doppler study of the lower extremity negative for DVT -pending echo 2D -pending BNP report -restarted home medication sotalol # diabetes mellitus type 2 -insulin sliding scale as prescribed -ordered for hemoglobin A1c # Hypertension # hyperlipidemia -resume other home medications lisinopril 25 mg p.o. daily Goals of care, Code status full code ; discussed with >15 minutes PUD prophylaxis: Pantoprazole DVT prophylaxis: SCD Plan discussed with Dr. You, nursing staff, Total time spent on patient evaluation, chart review, assessment and plan, discussion discussion >35 minutes Plan discussed with: Patient, Other (RN) My Orders Orders - JEFF MUNSON RESIDENT Procedure Category Date Status Time Admit ADMIT 04/28/25 Transmitted 15:24 Allergies JUDY 04/28/25 In Process 15:24 Code Status CODE 04/28/25 Transmitted 15:24 Complete Blood Count LAB 04/29/25 Verified 04:00 Comprehensive LAB 04/29/25 Verified Metabolic Panel 04:00 Cardiac DIET 04/28/25 Transmitted Diet-2gna,Lofat,Lochol Dinner Notify Of Changes JUDY 04/28/25 In Process From Base 15:24 Electrocardigram EKG 04/28/25 Logged 15:28 Chest Xray 1 View XY 04/28/25 Taken 15:28 Urine Bacterial KESHAV 04/28/25 In Process Culture 15:28 Date of Service: Apr 28, 2025 Billing Provider: MURIEL YOU MD Common Visit Codes: [id number] INP/OBS CARE (HIGH) Secondary Visit Codes: [id number] CARE PLAN 30 MINUTES MURIEL YOU MD 05/01/25 1252: Review of Systems Allergies: Coded Allergies: NO KNOWN ALLERGIES (Unverified , 06/12/17) JEFF MUNSON RESIDENT Apr 28, 2025 17:11 MURIEL YOU MD May 01, 2025 12:52
[2025-04-28] MEDS: SODIUM CHLORIDE 0.9% 1,000 ML IV SCH (21:05)
[2025-04-28] MEDS: SOTALOL HCL 80 MG TAB PO SCH (22:29)
[2025-04-29] VITALS (7 sets, daily range): BP systolic 121–152; BP diastolic 74–96; PULSE 51–82; RESP 14–18; TEMP 96.5–98.4; O2SAT 94–100
[2025-04-29] MEDS: PANTOPRAZOLE 40 MG TAB PO SCH (04:58)
[2025-04-29 06:00] LABS: Hematocrit 41.8 % (41.0-53.0); Hemoglobin 14.1 g/dL (13.5-17.5); Mean Corpuscular Hemoglobin 31.1 pg (28.0-32.0); Mean Corpuscular Volume 92.4 fL (80.0-100.0); Nucleated Red Blood Cells % 0.1 %
[2025-04-29 06:09] LABS: Alanine Aminotransferase 18 U/L (7-40); Albumin 4.2 g/dL (3.2-4.8); Alkaline Phosphatase 52 U/L (46-116); Anion Gap 10 (5-15); BUN/Creatinine Ratio 9.2 (10.0-20.0); Blood Urea Nitrogen 11 mg/dL (9-23); Calcium 9.2 mg/dL (8.7-10.4); Carbon Dioxide 29 mmol/L (20-31); Chloride 105 mmol/L (98-107); Magnesium 1.9 mg/dL (1.6-2.6); Potassium 4.1 mmol/L (3.5-5.1); Sodium 144 mmol/L (136-145); Total Protein 6.9 g/dL (5.7-8.2)
[2025-04-29 06:15] LABS: Bilirubin, Total 1.6 mg/dL (0.2-1.0); Glucose 111 mg/dL (74-106)
[2025-04-29 08:07] LABS: Prostate Specific Antigen 0.1 ng/mL (0.0-4.0)
[2025-04-29] MEDS: ATORVASTATIN 20 MG TAB PO SCH (08:39)
[2025-04-29] MEDS: CHOLECALCIFEROL (VITD3) 1,000UNIT=25mCg TAB PO SCH (08:39)
[2025-04-29] MEDS: FINASTERIDE 5 MG TAB PO SCH (08:39)
[2025-04-29] MEDS: LISINOPRIL 5 MG TAB PO SCH (08:40)
--- NOTE | 2025-04-29 10:26 | DVHPN2 ---
Progress Note - Dictate Date Seen: Apr 29, 2025 Medical Necessity Reason Pt with a Central, PICC or Fol: No Subjective feeling well, urinating blood with small clots vital signs Vital Sign Date Time Temp Pulse Resp B/P (MAP) Pulse Ox O2 Delivery O2 Flow Rate FiO2 04/29/25 08:40 139/74 04/29/25 08:33 97.8 64 18 96 97.8 04/29/25 00:06 Room Air* 0 21 Total Intake and Output 04/28/25 04/28/25 04/29/25 15:00 23:00 07:00 Intake Total 50 ml Balance 50 ml medications Current Medications Medications Dose Ordered Sig/Eduard Route Start Time Stop Time Status Last Admin Dose Admin Sodium Chloride 1,000 ml @ 120 mls/hr Q8H20M IV 04/28/25 15:45 04/29/25 07:27 120 MLS/HR Ceftriaxone Sodium 50 ml @ 100 mls/hr DAILY@09 IV 04/29/25 09:00 04/29/25 08:38 100 MLS/HR Insulin Human Lispro AC SC 04/28/25 17:00 Diagnostic Test (Pha) 1 strip AC 04/28/25 17:00 04/29/25 05:05 1 STRIP Cholecalciferol 1,000 unit DAILY PO 04/29/25 10:00 04/29/25 08:39 1,000 UNIT Sotalol HCl 40 mg TID PO 04/28/25 22:00 04/29/25 04:57 40 MG Atorvastatin Calcium 10 mg DAILY PO 04/29/25 10:00 04/29/25 08:39 10 MG Finasteride 5 mg DAILY PO 04/29/25 10:00 04/29/25 08:39 5 MG Lisinopril 12.5 mg DAILY PO 04/29/25 10:00 04/29/25 08:40 12.5 MG Pantoprazole Sodium 40 mg DAILY@0600 PO 04/29/25 06:00 04/29/25 04:58 40 MG Tamsulosin HCl 0.4 mg DAILY PO 04/29/25 10:00 objective NAD, resting comfortably laboratory and microbiology Laboratory Tests 04/29/25 05:05 Test 04/29/25 05:05 Range/Units Serum Glucose 111 H 74-106 mg/dL Assessment/Plan 3 way landrum with CBI until clear consider inpatient cystoscopy if not improved with CBI or h/h drops hold xarelto Problems(with codes): (1) Hx of brachytherapy (2) Hx of prostatic malignancy (3) Hematuria Plan discussed with: Patient FALGUNI CERON NP Apr 29, 2025 10:26
[2025-04-29] MEDS: TAMSULOSIN HYDROCHLORIDE 0.4 MG CAP PO SCH (11:17)
[2025-04-29] MEDS: LIDOCAINE 2% JELLY 11ml (GLYDO) UR ONE (11:17)
[2025-04-29] MEDS ORDERED: [UNRECOGNIZED DRUG - CODE] EX (13:55)
[2025-04-29] MEDS ORDERED: PANT40TA2 PO (13:55)
[2025-04-29] MEDS ORDERED: METO-159 PO (13:55)
[2025-04-29] MEDS ORDERED: MAGN400T40 OR (13:55)
[2025-04-29] MEDS ORDERED: FINA5TAB4 PO (13:55)
[2025-04-29] MEDS ORDERED: SEMA4INJ SC (13:55)
[2025-04-29] MEDS ORDERED: ATOR20TA PO (13:55)
[2025-04-29] MEDS ORDERED: LOSA25TA5 PO (13:55)
[2025-04-29] MEDS ORDERED: CICL0.776 EX (13:55)
--- NOTE | 2025-04-29 14:39 | DVHPNRES ---
Progress Note Date Seen: Apr 29, 2025 Resident Creating Document: RAMY VU RESIDENT Has the PT tested + for MRSA If YES, has PT been informed?: No Medical Necessity Reason Pt with a Central, PICC or Fol: No Subjective Review of Systems Patient evaluated today for ongoing gross hematuria. Reports urine still tinged with blood but template fitter in color compared to yesterday. Continuous bladder irrigation (CBI) via three-way Rich catheter per urology. Denies flank pain, dysuria, suprapubic pain, fever, chills, nausea, vomiting, or dizziness. No new shortness of breath or chest discomfort. Preliminary urine culture shows > 100,000 CFU mixed evelin with > 3 organisms, likely contaminated specimen. Currently receiving ceftriaxone 1 g IV daily. Repeat culture ordered for accurate pathogen identification. Imaging updates: * CT abdomen/pelvis (non-contrast): No acute abnormality. * Chest X-ray: Mild pulmonary vascular congestion. * Bilateral LE venous duplex: No sonographic evidence of DVT. Laboratory trends: * Hgb 14.1 stable from 14.5 yesterday * WBC 7.5 ( from 6.9) no leukocytosis * Cr 1.2, BUN 11, GFR 63 (renal function stable) * BNP 109 pg/mL, AST 22 / ALT 18, Tbili 1.6 from 2.3 improving) * Electrolytes and glucose within acceptable limits Urology recommendation: Continue CBI until urine clears; hold all anticoagulants including Xarelto; consider inpatient cystoscopy if hematuria persists or hemoglobin drops. Review of Systems * Constitutional: No fever, chills, or malaise * CV: No chest pain or palpitations * Respiratory: No dyspnea, cough, or wheezing * GI: No abdominal pain, N/V, melena, hematochezia * : Gross hematuria no flank pain * Neuro: No focal weakness or confusion * Skin/MSK: No rash, swelling, or joint tenderness * Psych: No depression, SI/HI Objective vital signs Vital Sign Date Time Temp Pulse Resp B/P (MAP) Pulse Ox O2 Delivery O2 Flow Rate FiO2 04/29/25 14:07 98.4 72 17 152/85 (107) 94 98.4 04/29/25 00:06 Room Air* 0 21 Total Intake and Output 04/28/25 04/28/25 04/29/25 15:00 23:00 07:00 Intake Total 50 ml Balance 50 ml medications Current Medications Medications Dose Ordered Sig/Eduard Route Start Time Stop Time Status Last Admin Dose Admin Sodium Chloride 1,000 ml @ 120 mls/hr Q8H20M IV 04/28/25 15:45 04/29/25 07:27 120 MLS/HR Ceftriaxone Sodium 50 ml @ 100 mls/hr DAILY@09 IV 04/29/25 09:00 04/29/25 08:38 100 MLS/HR Insulin Human Lispro AC SC 04/28/25 17:00 04/29/25 11:21 1 UNITS Diagnostic Test (Pha) 1 strip AC 04/28/25 17:00 04/29/25 11:17 1 STRIP Cholecalciferol 1,000 unit DAILY PO 04/29/25 10:00 04/29/25 08:39 1,000 UNIT Sotalol HCl 40 mg TID PO 04/28/25 22:00 04/29/25 04:57 40 MG Atorvastatin Calcium 10 mg DAILY PO 04/29/25 10:00 04/29/25 08:39 10 MG Finasteride 5 mg DAILY PO 04/29/25 10:00 04/29/25 08:39 5 MG Lisinopril 12.5 mg DAILY PO 04/29/25 10:00 04/29/25 08:40 12.5 MG Pantoprazole Sodium 40 mg DAILY@0600 PO 04/29/25 06:00 04/29/25 04:58 40 MG Tamsulosin HCl 0.4 mg DAILY PO 04/29/25 10:00 04/29/25 11:17 0.4 MG Examination System Findings General Awake, alert, oriented 3, hemodynamically stable HEENT PERRLA, no pallor, no icterus CVS S1 S2 audible, regular rhythm, no murmurs Respiratory CTAB, no wheezing, mild vascular congestion on CXR Abdomen Soft, nontender, nondistended, BS + no suprapubic tenderness Extremities Bilateral +1 pitting edema, no erythema, no calf tenderness Neuro CN IIXII intact, no focal deficits Skin No rash, purpura, or ulcers laboratory and microbiology Laboratory Tests 04/29/25 05:05 Test 04/29/25 05:05 Range/Units Serum Glucose 111 H 74-106 mg/dL Microbiology Date/Time Source Procedure Growth Status 04/28/25 09:41 Voided Urine Urine Culture - Preliminary Resulted Labs and/or images reviewed: Labs reviewed by me, Image(s) reviewed by me Problem List/Assessment/Plan Problem List/Assessment/Plan Assesment Gross hematuria acute, likely secondary to cystitis vs anticoagulation effect * No structural lesion on CT. Hgb stable. CBI ongoing. Anticoagulation held.Urology following. Acute cystitis / UTI * UA: blood 3+, trace LE. Preliminary urine culture > 100 K CFU mixed evelin , probable contamination. Repeat culture pending. Continue empiric ceftriaxone 1 g IV daily pending results. Prostate carcinoma (2018 s/p brachytherapy) * Stable, no biochemical recurrence as per PSA levels. Atrial fibrillation with prior DVT, on Xarelto (held) s/p pacemaker * [id number] is 4. . Resume anticoagulation once bleeding resolves and H/H stable ? 48 h. Heart failure with preserved EF / Volume overload risk * BNP 109 pg/mL; mild pulmonary vascular congestion on CXR. Monitor weights, I/O. Bilateral leg edema * Doppler negative for DVT. Likely venous stasis vs HFpEF. Type 2 diabetes mellitus * A1C 5.8 %. Continue Lispro SSI protocol and diabetic diet. Hypertension / Hyperlipidemia * Controlled; continue lisinopril and atorvastatin. CKD stage 23 stable * Avoid nephrotoxins; maintain IVF NS @ 56223 mL/hr Plan ([facility]) Genitourinary / Renal * Continue 3-way Rich with CBI; monitor color and clot burden. * Hold Xarelto until bleeding resolves and H/H stable. * Continue ceftriaxone 1 g IV daily pending repeat urine culture. * Repeat clean-catch urine culture or catheter specimen for accuracy. * If culture returns significant growth of organisms switch per sensitivity. * Maintain adequate hydration (IV NS @ 75mL/hr). * Monitor I/O and daily weights. * Urology to consider inpatient cystoscopy if CBI fails or Hgb drops > 1 g/dL. Cardiovascular * Continue sotalol 40 mg TID PO for rate control. * Hold anticoagulation temporarily (per urology).Continue Atorvastatin 10mg and lisinopril 12.5mg * BNP 109 pg/mL: continue to monitor for HFpEF; add PRN Lasix if volume overload increases. Endocrine / Metabolic * Continue sliding-scale insulin (Lispro) per protocol. * Maintain blood glucose < 180 mg/dL. * Continue diabetic diet (ADA 1800 kcal). Hepatic * Mildly elevated bilirubin 1.6 likely hemolysis from hematuria vs congestive component; monitor trend. Hematology * Trend H/H q12h until urine clears. * No transfusion indicated (Hgb > 14). * If drops > 2 points, evaluate for ongoing bleed vs other source. Infectious Disease * Continue ceftriaxone empirically; reassess after repeat culture. Pulmonary * Mild pulmonary vascular congestion on CXR; monitor for symptoms. Maintain SpO? > 94 % on room air. GI / Nutrition * Continue pantoprazole 40 mg PO daily for PUD prophylaxis. * Diabetic diet with adequate hydration. Prophylaxis * DVT prophylaxis: SCDs only (anticoagulant held due to bleeding). * GI prophylaxis: Pantoprazole 40 mg PO daily. Code status : Full Code Case discussed in detail with the attending physician , including the clinical presentation, diagnostic workup, and comprehensive management plan. The patient was present for the discussion and demonstrated understanding of his condition and the proposed plan. Plan discussed with: Patient, Other (RN) My Orders My Orders Orders - RAMY VU RESIDENT Procedure Category Date Status Time Tamsulosin PHA 04/29/25 In Process Hydrochloride (Flomax) 10:00 Date of Service: Apr 29, 2025 Billing Provider: MURIEL YOU MD Common Visit Codes: [id number] INP/OBS CARE(HIGH) Addendum Addendum Addendum I was physically present for the hamm portions of the service provided to patient by THE RESIDENT. I have reviewed the documentation, discussed the case with resident and agree with the resident's documentation except as noted. Also the patient's clinical case was discussed with the patient's nurse. This medical document was created using an electronic medical record system with computerized dictation system. Although this document has been carefully reviewed, there might still be some phonetic and typographical errors. These areas are purely typographical due to imperfections of the software programs, and do not reflect any compromise in the patient's medical care. Late signature. RAMY VU RESIDENT Apr 29, 2025 14:39 MURIEL YOU MD May 01, 2025 12:49
[2025-04-29] MEDS ORDERED: LIDOCAINE 2% JELLY 11ml (GLYDO) UR ONE (15:45)
[2025-04-29 16:44] LABS: Urine Protein, UAD TRACE (Negative)
[2025-04-29] MEDS: SODIUM CHLORIDE 0.9% 1,000 ML IV SCH (17:22)
[2025-04-30] VITALS (7 sets, daily range): BP systolic 116–152; BP diastolic 77–91; PULSE 55–85; RESP 12–18; TEMP 96.6–98.2; O2SAT 94–100
[2025-04-30 05:40] LABS: Hematocrit 40.2 % (41.0-53.0); Hemoglobin 14.0 g/dL (13.5-17.5); Mean Corpuscular Hemoglobin 32.0 pg (28.0-32.0); Mean Corpuscular Volume 92.2 fL (80.0-100.0); Nucleated Red Blood Cells % 0.0 %
[2025-04-30 05:54] LABS: Anion Gap 10 (5-15); Carbon Dioxide 26 mmol/L (20-31); Chloride 106 mmol/L (98-107); Potassium 4.2 mmol/L (3.5-5.1); Sodium 142 mmol/L (136-145)
[2025-04-30 05:56] LABS: Calcium 9.6 mg/dL (8.7-10.4)
[2025-04-30 06:01] LABS: BUN/Creatinine Ratio 9.3 (10.0-20.0); Blood Urea Nitrogen 10 mg/dL (9-23)
[2025-04-30 06:12] LABS: Glucose 128 mg/dL (74-106)
--- NOTE | 2025-04-30 11:40 | DVHPNRES ---
Progress Note Date Seen: Apr 30, 2025 Resident Creating Document: JEFF MUNSON RESIDENT Has the PT tested + for MRSA If YES, has PT been informed?: No Medical Necessity Reason Pt with a Central, PICC or Fol: No Subjective Review of Systems Be Lucoi is a 75-year-old male, with past medical history of prostate Carcinoma (2018), status post brachytherapy in 2018, HTN, Atrial fibrillation, DVT, pacemaker, and DM2, internal hemorrhoids The patient came to the ED with chief complain of 1 day of hematuria, red dark urine "wine color" with clots associated with mild burning sensation after voiding. Today, the patient reports the urine continues with blood clots, this prompted his visit to the ED. The patient also reports he is on blood thinners: Xarelto. The patient denies fever, chills, diarrhea, vomit, back pain, abdominal pain, trauma or other symptoms. Initial lab workup revealed hemoglobin 14.5, serum bilirubin 2.3. AST 28, ALT 21, creatinine, urinalysis revealed blood 3+, leukocyte esterase trace, RBC 8328, WBC 224. CT abdomen and pelvis revealed- No acute noncontrast CT abnormality in the abdomen or pelvis. Study of the bilateral lower extremity negative for DVT. Uterine culture more than 3 organisms. Uterine culture no growth on . PMH-prostate Carcinoma (2018), HTN, Atrial fibrillation, DVT, pacemaker, and DM2 PSH-pacemaker placement Allergy- NKDA Personal History/ Social History- denies smoking/occasional alcoholic on holiday, denies using any substance, lives with the at home Patient was seen today at bedside. Labs and chart reviewed. Still having hematuria. Urology had a recommendation for 3 way Rich's catheter and continuous bladder irrigation. As per nursing staff they were unable to put a Rich's catheter due to high resistance. Spoke to Janine ROMERO, katrin breen said she is going to put the Rich's catheter when she comes here today. Objective vital signs Vital Sign Date Time Temp Pulse Resp B/P (MAP) Pulse Ox O2 Delivery O2 Flow Rate FiO2 04/30/25 09:37 116/89 04/30/25 08:54 97.4 76 16 100 97.4 04/30/25 07:45 Room Air* 0 21 Total Intake and Output 04/29/25 04/29/25 04/30/25 15:00 23:00 07:00 Intake Total 950 ml 425 ml Output Total 1450 ml Balance 950 ml -1025 ml medications Current Medications Medications Dose Ordered Sig/Eduard Route Start Time Stop Time Status Last Admin Dose Admin Ceftriaxone Sodium 50 ml @ 100 mls/hr DAILY@09 IV 04/29/25 09:00 04/30/25 09:30 100 MLS/HR Insulin Human Lispro AC SC 04/28/25 17:00 04/30/25 11:30 1 UNITS Diagnostic Test (Pha) 1 strip AC 04/28/25 17:00 04/30/25 11:27 1 STRIP Cholecalciferol 1,000 unit DAILY PO 04/29/25 10:00 04/30/25 09:37 1,000 UNIT Sotalol HCl 40 mg TID PO 04/28/25 22:00 04/30/25 05:07 40 MG Finasteride 5 mg DAILY PO 04/29/25 10:00 04/30/25 09:37 5 MG Lisinopril 12.5 mg DAILY PO 04/29/25 10:00 04/30/25 09:37 12.5 MG Pantoprazole Sodium 40 mg DAILY@0600 PO 04/29/25 06:00 04/30/25 05:07 40 MG Tamsulosin HCl 0.4 mg DAILY PO 04/29/25 10:00 04/30/25 09:35 0.4 MG Atorvastatin Calcium 10 mg HS PO 04/30/25 22:00 Examination General examination- awake, alert, oriented HEENT- PEERLA, no acute nasal discharge Cardiovascular- S1-S2 audible, rate and rhythm regular, no murmur Respiratory- CTAB, no wheeze or rhonchi Gastrointestinal-nontender, bowel sound+. Nondistended Musculoskeletal-no acute joint swelling or tenderness or redness Lower extremity- + bilateral leg edema+ Renal system-no renal angle tenderness Neurological- cranial nerves intact, no acute dysarthria or dysphagia Psychiatry- denies depression or SI or HI Skin- no acute rash or purpura laboratory and microbiology Laboratory Tests 04/30/25 04:46 Test 04/30/25 04:46 Range/Units Serum Glucose 128 H 74-106 mg/dL Microbiology Date/Time Source Procedure Growth Status 04/29/25 16:20 Urine - Midstream Clean Catch Urine Culture - Preliminary Resulted Problem List/Assessment/Plan Problem List/Assessment/Plan Assessment and plan-patient came with the hematuria, seen by Urology, recommended for CT scan of the abdomen and pelvis with the contrast, ordered Rich's catheter 3 way, pending uterine culture with suspected UTI. Started on ceftriaxone. Pending PSA. # acute hematuria likely due to UTI # rule out medication induced hematuria/renal cell carcinoma # history of prostatic carcinoma, status post brachytherapy in 2018 -patient was seen by urologist recommended for CT abdomen and pelvis without contrast, Rich's three-way catheter -ordered ceftriaxone 1 g IV daily -pending urine culture -restarted home medication finasteride -pending PSA level ordered by Urology #History of atrial fibrillation, DVT, on Xarelto at home # on Pacemaker # history of heart failure with preserved ejection fraction, no acute exacerbation # bilateral leg edema, rule out DVT -Doppler study of the lower extremity negative for DVT -pending echo 2D -pending BNP report -restarted home medication sotalol # diabetes mellitus type 2 -insulin sliding scale as prescribed -ordered for hemoglobin A1c # Hypertension # hyperlipidemia -resume other home medications lisinopril 25 mg p.o. daily Goals of care, Code status full code ; discussed with >15 minutes PUD prophylaxis: Pantoprazole DVT prophylaxis: SCD Plan discussed with Dr. Adams, nursing staff, Total time spent on patient evaluation, chart review, assessment and plan, discussion discussion >35 minutes Plan discussed with: Patient, Other (RN) Plan discussed with: Patient, Other (RN) My Orders My Orders Orders - JEFF MUNSON Procedure Category Date Status Time Atorvastatin (Lipitor) PHA 04/30/25 In Process 22:00 Dietary Evaluation Review Recommendations by RD: Dietary education by RD Comments: 1) Continue 45g CCHO cardiac diet 2) Encourage optimal PO intake 3) Refer to outpatient RD/CD[facility] for weight management 4) Follow-up with cardiology and nephrology 5) Continue to monitor I&O, labs, and skin integrity Expected Outcomes/Goals: 1) appetite and labs to improve 2) gradual wt loss 3) f/u in 3-5 days JEFF MUNSON Apr 30, 2025 11:40
--- NOTE | 2025-04-30 15:32 | DVHDSRES ---
Discharge Summary Date of Admission Resident Creating Document: JEFF MUNSON RESIDENT Apr 28, 2025 at 15:24 Date of Discharge: Apr 30, 2025 Admitting Diagnosis Acute hematuria Labs/Diagnostic Data: Laboratory Results Test 04/30/25 11:26 04/30/25 04:46 04/29/25 16:20 04/29/25 05:05 POC Glucose 160 mg/dl (70-106) White Blood Count 6.3 10^3/uL (4.4-10.8) Red Blood Count 4.36 10^6/uL (4.5-5.90) Hemoglobin 14.0 g/dL (13.5-17.5) Hematocrit 40.2 % (41.0-53.0) Mean Corpuscular Volume 92.2 fL (80.0-100.0) Mean Corpuscular Hemoglobin 32.0 pg (28.0-32.0) Mean Corpuscular Hemoglobin Concent 34.7 g/dL (32.0-36.0) Red Cell Distribution Width 13.4 % (11.8-14.3) Platelet Count 155 10^3/uL (140-450) Mean Platelet Volume 8.4 fL (6.9-10.8) Neutrophils (%) (Auto) 54.1 % (37.0-80.0) Lymphocytes (%) (Auto) 29.8 % (10.0-50.0) Monocytes (%) (Auto) 10.4 % (0.0-12.0) Eosinophils (%) (Auto) 4.9 % (0.0-7.0) Basophils (%) (Auto) 0.8 % (0.0-2.0) Neutrophils # (Auto) 3.4 10 ^3/uL (1.6-8.6) Lymphocytes # (Auto) 1.9 10 ^3/uL (0.4-5.4) Monocytes # (Auto) 0.7 10 ^3/uL (0-1.3) Eosinophils # (Auto) 0.3 10 ^3/uL (0-0.8) Basophils # (Auto) 0.1 10 ^3/uL (0-0.2) Nucleated Red Blood Cells 0.0 % Sodium Level 142 mmol/L (136-145) Potassium Level 4.2 mmol/L (3.5-5.1) Chloride Level 106 mmol/L (98-107) Carbon Dioxide Level 26 mmol/L (20-31) Anion Gap 10 (5-15) Blood Urea Nitrogen 10 mg/dL (9-23) Creatinine 1.07 mg/dL (0.700-1.30) Glomerular Filtration Rate Calc 72 mL/min (>90) BUN/Creatinine Ratio 9.3 (10.0-20.0) Serum Glucose 128 mg/dL (74-106) Calcium Level 9.6 mg/dL (8.7-10.4) Urine Color Colorless (Yellow) Urine Clarity Turbid (Clear) Urine pH 7.5 (5.0-9.0) Urine Specific [place] 1.007 (1.001-1.035) Urine Protein Trace (Negative) Urine Ketones Negative (Negative) Urine Blood 3+ /uL (Negative) Urine Nitrite Negative (Negative) Urine Bilirubin Negative (Negative) Urine Urobilinogen Normal mg/dL (Negative) Urine Leukocyte Esterase 1+ /uL (Negative) Urine RBC 4337 /hpf (0 - 3) Urine Microscopic WBC 70 /HPF (0-3) Urine Squamous Epithelial Cells None seen /hpf (<5) Urine Bacteria None seen /hpf (None Seen) Urine Glucose Normal mg/dL (Normal) Magnesium Level 1.9 mg/dL (1.6-2.6) Total Bilirubin 1.6 mg/dL (0.2-1.0) Aspartate Amino Transferase (AST) 22 U/L (13-40) Alanine Aminotransferase (ALT) 18 U/L (7-40) Alkaline Phosphatase 52 U/L (46-116) Total Protein 6.9 g/dL (5.7-8.2) Albumin 4.2 g/dL (3.2-4.8) Test 04/28/25 16:13 04/28/25 10:01 Prothrombin Time 11.5 sec (9.3-11.8) Prothrombin Time INR 1.09 (0.9-1.15) Activated Partial Thromboplast Time 29.3 SEC (24.5-34.5) Hemoglobin A1c 5.8 % A1C (<5.7) Lactic Acid Level 1.1 mmol/L (0.4-2.0) Direct Bilirubin 0.6 mg/dL (<0.3) B-Type Natriuretic Peptide 109.38 pg/mL (0-100) Vitamin B12 Level 708 pg/mL (211-911) Vitamin D 25-Hydroxy 53.6 ng/mL (30.0-100) Thyroid Stimulating Hormone (TSH) 2.32 uIU/mL (0.55-4.78) Free Prostate Specific Antigen 0.02 ng/mL (N/A) Percent Free Prostate Specific Ag 20.0 % (.) Prostate Specific Antigen Total 0.1 ng/mL (0.0-4.0) Other Laboratory Tests 04/30/25 04:46 Brief Hx & Hospital Course: Anay Lucio is a 75-year-old male, with past medical history of prostate Carcinoma (2018), status post brachytherapy in 2018, HTN, Atrial fibrillation, DVT, pacemaker, and DM2, internal hemorrhoids The patient came to the ED with chief complain of 1 day of hematuria, red dark urine "wine color" with clots associated with mild burning sensation after voiding. Today, the patient reports the urine continues with blood clots, this prompted his visit to the ED. The patient also reports he is on blood thinners: Xarelto. The patient denies fever, chills, diarrhea, vomit, back pain, abdominal pain, trauma or other symptoms. Initial lab workup revealed hemoglobin 14.5, serum bilirubin 2.3. AST 28, ALT 21, creatinine, urinalysis revealed blood 3+, leukocyte esterase trace, RBC 8328, WBC 224. CT abdomen and pelvis revealed- No acute noncontrast CT abnormality in the abdomen or pelvis. Study of the bilateral lower extremity negative for DVT. Urine culture more than 3 organisms. Repeat Urine culture negative for any growth. Echo revealed LVEF 50%, RVSP 22. Patient was treated conservatively. Patient's symptoms improved. Xarelto was on hold. Patient had a clear uterine this morning. Urology recommended to discharge patient as he has a cleared uterine and follow up outpatient for possible outpatient cystoscopy. Patient is being discharged with Keflex as prescribed. Patient was advised to follow up at discharge clinic, follow up with the primary care physician in 2 weeks and also to follow up with the urologist Dr. Dow as per recommendation. Patient's meds were sent to the pharmacy electronically. Patient was hemodynamically stable on discharge. Physical exam on the day of discharge: General examination- awake, alert, oriented HEENT- PEERLA, no acute nasal discharge Cardiovascular- S1-S2 audible, rate and rhythm regular, no murmur Respiratory- CTAB, no wheeze or rhonchi Gastrointestinal-nontender, bowel sound+. Nondistended Musculoskeletal-no acute joint swelling or tenderness or redness Lower extremity- + bilateral leg edema+ Renal system-no renal angle tenderness Neurological- cranial nerves intact, no acute dysarthria or dysphagia Psychiatry- denies depression or SI or HI Skin- no acute rash or purpura Discussed with Dr. You Consults/Reason for consult Urology for acute hematuria Operations or Procedures [address] [address] Ph: [phone] DIAGNOSTIC IMAGING Diagnostic Imaging Report : [id number] Signed PATIENT: ANAY WOLFE ACCT: [id number] UNIT: [id number] : 1950 LOC: ER ROOM / BED: / AGE / SEX: 75 / M ADM STATUS: REG ER SERVICE 110 ORDERING PHYSICIAN: STEFANO DOW MD PROCEDURE(s): ABPL - CT AB PEL WO CON-NO ORAL OR IV REASON: gross hematuria ORDER NUMBER(s): [id number], ACCESSION NUMBER(s): [id number] CLINICAL HISTORY: gross hematuria TECHNIQUE: CT of the abdomen and pelvis was performed without IV contrast. This exam was performed according to our departmental dose optimization program. Up-to-date CT equipment and radiation dose reduction techniques are utilized as appropriate. CTDI 25 DLP 1463 COMPARISON: None FINDINGS: Abdomen/Pelvis: The spleen, pancreas, adrenal glands, gallbladder, liver, and bladder are grossly unremarkable. There are therapy seeds within the prostate gland. Hypodense lesions within both kidneys are incompletely characterized due to lack of IV contrast. The abdominal aorta is normal in course and caliber. There are minimal atherosclerotic calcifications. There is no free intraperitoneal air or fluid. There is no enlarged abdominal pelvic lymph node. There is no bowel wall thickening or dilatation. The appendix is normal. There is a small fat containing left inguinal hernia. Other: The imaged lower thorax demonstrates right-sided pacer wires. No acute osseous abnormality is evident. Impression: No acute noncontrast CT abnormality in the abdomen or pelvis. 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 DICTATED BY: ERLINDA REYNA MD DICTATED DATE/TIME: 04/28/25 1347 SIGNED BY: ERLINDA REYNA MD SIGNED DATE/TIME: 04/28/25 1435 CC: [address] [address] Ph: [phone] DIAGNOSTIC IMAGING Diagnostic Imaging Report : [id number] Signed PATIENT: ANAY WOLFE ACCT: [id number] UNIT: [id number] : 1950 LOC: OVERFLOW ROOM / BED: 1019-ER / A AGE / SEX: 75 / M ADM STATUS: ADM IN SERVICE 1539 ORDERING PHYSICIAN: YECENIA PIERRE RESIDENT PROCEDURE(s): BLDVT - BiLat Lower DVT REASON: RULE OUT DVT ORDER NUMBER(s): [id number], ACCESSION NUMBER(s): [id number] CLINICAL HISTORY: RULE OUT DVT TECHNIQUE: Color and duplex doppler imagine of the bilateral lower extremity veins was performed. Vessel compression and augmentation if possible was also performed. COMPARISON: None FINDINGS: Right Lower Extremity: Right common femoral vein: Normal compressibility and flow. Right superficial femoral vein: Normal compressibility and flow. Right popliteal vein: Normal compressibility and flow. Left Lower Extremity: Left common femoral vein: Normal compressibility and flow. Left superficial femoral vein: Normal compressibility and flow. Left popliteal vein: Normal compressibility and flow. IMPRESSION: NO SONOGRAPHIC EVIDENCE FOR DEEP VENOUS THROMBOSIS IN THE BILATERAL LOWER EXTREMITY VEINS. ATED BY: ERLINDA REYNA MD DICTATED DATE/TIME: 04/28/25 1635 SIGNED BY: ERLINDA REYNA MD SIGNED DATE/TIME: 04/28/25 1635 CC: [address] [address] Ph: [phone] DIAGNOSTIC IMAGING Diagnostic Imaging Report : [id number] Signed PATIENT: ANAY WOLFE ACCT: [id number] UNIT: [id number] : 1950 LOC: OVERFLOW ROOM / BED: 1019-ER / A AGE / SEX: 75 / M ADM STATUS: ADM IN SERVICE 1528 ORDERING PHYSICIAN: JEFF MUNSON PROCEDURE(s): CXR1 - CHEST XRAY 1 VIEW REASON: Pulmonary congestion>? ORDER NUMBER(s): [id number], ACCESSION NUMBER(s): [id number] CHEST RADIOGRAPH Indication: Pulmonary congestion> Technique: XY CHEST XRAY 1 VIEW Comparison: None FINDINGS: Left chest dual lead cardiac pacer device The cardiac silhouette is unremarkable. The lungs demonstrate no pulmonary airspace consolidation. The pulmonary vasculature is mildly prominent. There is no pleural effusion. There is no pneumothorax. IMPRESSION: Mild pulmonary vascular congestion ATED BY: FREDERICK RIVERA MD DICTATED DATE/TIME: 04/28/251704 SIGNED BY: FREDERICK RIVERA MD SIGNED DATE/TIME: 04/28/251704 CC: [place] [address] Ph: [phone] DIAGNOSTIC IMAGING Diagnostic Imaging Report : [id number] Signed PATIENT: ANAY WLOFE ACCT: [id number] UNIT: [id number] : 1950 LOC: CENTRAL ROOM / BED: [facility] A AGE / SEX: 75 / M ADM STATUS: ADM IN SERVICE 38 ORDERING PHYSICIAN: YECENIA PIERRE PROCEDURE(s): ECIDC - ECHO 2D MODE CARDIAC DOP REASON: history of HEART FAILURE ORDER NUMBER(s): [id number], ACCESSION NUMBER(s): [id number] APPROVED REPORT EXAM: Two-dimensional and M-mode echocardiogram with Doppler and color Doppler. Blood Pressure: 150/83 mmHg INDICATION History of heart failure? Surgery/Intervention Pacemaker: RISK FACTORS Obesity: Height: 6'3", Weight: 277 DIMENSIONS LVDd 4.4 (3.8-5.7cm) LA (2D) 4.0 (1.9-4.0cm) Aortic Root 4.3 (2.0- 3.7cm) LVDs 3.1 (2.5-4.0cm) LA (MM) (1.9-4.0cm) Aortic Cusp Exc 2.5 (1.5- 2.0cm) EF (%) 55.0 (55-70%) Rt. Atrium 4.1 (1.9-4.0cm) Asc. Aorta 4.6 cm IVSd 1.2 (0.7-1.1cm) RV (D) 3.7 (1.8-2.4cm) PWd 1.2 (0.7-1.1cm) Mitral Valve Mitral Mitral Stenosis E wave 0.49m/s MV Mean GR. mmHg A wave 0.65m/s MV Peak GR. mmHg E/A ratio 0.8 2D MVA cm2 DECEL Time 213ms PRESS 1/2 Time ms Aortic Valve Aortic Valve Aortic Stenosis V1 0.81m/s AO Mean GR. 3mmHg V2 1.21m/s AO Peak GR. 6mmHg LVOT Diameter 2.4 (1.8-2.4cm) Doppler ANDRZEJ 3.03cm2 Pulmonic Valve V2 0.70m/s Tricuspid Valve TR Velocity 2.20m/s RVSP 22mmHg Other Information Technically limited study due to body habitus. Conclusion Sinus rhythm. Concentric LVH with biatrial enlargement. Aortic root enlargement. Dilation of the sinuses of Valsalva. Mild aortic sclerosis. No significant stenosis. Mild mitral annular calcification. Left ventricular function is preserved at 50% with normal RV function. Mild TR. RVSP at 22 mmHg. No pericardial effusion masses or vegetations. SIGNED BY: JESSICA MACK Sr., MD SIGNED DATE/TIME: 04/30/25 0936 CC: Condition at Discharge: Stable Final Diagnosis/Problems List # acute hematuria likely due to UTI # rule out medication induced hematuria/renal cell carcinoma # history of prostatic carcinoma, status post brachytherapy in 2018 #History of atrial fibrillation, DVT, on Xarelto at home # on Pacemaker # history of heart failure with preserved ejection fraction, no acute exacerbation # bilateral leg edema, rule out DVT # diabetes mellitus type 2 # Hypertension # hyperlipidemia Discharge Disposition: Home Discharge Instruct/Medications Diet: Consistent carbohydrate, Cardiac 2g Na,low cholest Activity: No Restrictions, As Tolerated Follow Up/Referral: Please follow up at discharge clinic as per schedule Please follow up with the primary care physician in 2 weeks Please follow up with your urologist Dr. Dow for possible outpatient cystoscopy as per their recommendation Please hold Xarelto for 3 days then resume if cleared urine Medications: Keflex 500 mg p.o. b.i.d. for 5 days Please hold Xarelto for 3 days then resume if cleared urine Please resume your regular home medication except Xarelto as recommended Scheduled Atorvastatin Calcium (Lipitor), 1 TAB PO DAILY, (Reported) Cephalexin (Keflex Capsule), 1 CAP PO QID Cholecalciferol (Vitamin D3), 1,000 UNIT PO DAILY, (Reported) Ciclopirox (Ciclopirox), 8 % EX DAILY, (Reported) Ciclopirox Olamine (Ciclopirox), 8 % EX DAILY, (Reported) Ciprofloxacin Hcl (Cipro), 500 MG PO BID Coenzyme Q10 (Coq10), 200 MG PO DAILY, (Reported) Finasteride (Finasteride), 5 MG PO DAILY, (Reported) Insulin Aspart Protamine & Asp (Novolog Mix 70/30 Prefill (70-30) 100 Unit/ml), 36 UNITS SC QAM, (Reported) Insulin Aspart Protamine & Asp (Novolog Mix 70/30 Prefill (70-30) 100 Unit/ml), 30 UNITS SC QPM, (Reported) Losartan Potassium (Cozaar), 12.5 TAB PO DAILY, (Reported) Magnesium Oxide (Magnesium Oxide), 400 MG OR BIDAC, (Reported) Metformin Hydrochloride (Metformin Hcl), 500 MG PO IBID, (Reported) Metoprolol Tartrate (Metoprolol Tartrate), 50 MG OR BID, (Reported) Metoprolol Tartrate (Metoprolol Tartrate), 100 MG PO BID, (Reported) Multiple Vitamins W/ Minerals (Multi For Him), 1 HIM OR DAILY, (Reported) [place]-3 Fatty Acids (Fish Oil), 1,000 MG PO BID, (Reported) Pantoprazole Sodium Sesquihydr (Protonix), 40 MG PO DAILY, (Reported) Rivaroxaban (Xarelto), 1 TAB PO 4XWEEKLY, (Reported) Simvastatin (Simvastatin), 20 MG OR DAILY, (Reported) Sotalol Hcl (Sotalol Hcl), 0.5 TAB PO TID, (Reported) Tamsulosin Hcl (Flomax), 0.4 MG PO DAILY Miscellaneous Medications Semaglutide (Ozempic), 0.5 MG SC, (Reported) Discharge Statement: "Patient was advised to return to the ER or call 911 if any headaches, dizziness, shortness of breath, chest pain, abdominal pain, bleeding, fevers, or worsening of medical condition. Patient was counseled about treatment plan, medications, possible side effects, patientverbalized understanding. All questions were answered to the best of my ability. This discharge took greater then 30 minutes in planning, reviewing documentation, counseling the patient, and discussing with other team members." ASSESSMENT ASSESSMENT Assessment Addendum Addendum Addendum I was physically present for the hamm portions of the service provided to patient by THE RESIDENT. I have reviewed the documentation, discussed the case with resident and agree with the resident's documentation except as noted. Also the patient's clinical case was discussed with the patient's nurse. This medical document was created using an electronic medical record system with computerized dictation system. Although this document has been carefully reviewed, there might still be some phonetic and typographical errors. These areas are purely typographical due to imperfections of the software programs, and do not reflect any compromise in the patient's medical care. Late signature. Date of Service: Apr 30, 2025 Billing Provider: MURIEL YOU MD Common Visit Codes: 39565-APS/OBS DISCH DAY >30min JEFF MUNSON RESIDENT Apr 30, 2025 15:32 MURIEL YOU MD May 01, 2025 12:53
[2025-04-30] MEDS ORDERED: CEPH250C PO ×2 (16:02→16:37)
--- NOTE | 2025-04-30 16:32 | DVHSR ---
APPROVED REPORT EXAM: Two-dimensional and M-mode echocardiogram with Doppler and color Doppler. Blood Pressure: 150/83 mmHg INDICATION History of heart failure? Surgery/Intervention Pacemaker: RISK FACTORS Obesity: Height: 6'3", Weight: 277 DIMENSIONS LVDd4.4 (3.8-5.7cm)LA (2D)4.0 (1.9-4.0cm)Aortic Root4.3 (2.0-3.7cm) LVDs3.1 (2.5-4.0cm)LA (MM) (1.9-4.0cm)Aortic Cusp Exc2.5 (1.5-2.0cm) EF (%) 55.0 (55-70%)Rt. Atrium4.1 (1.9-4.0cm)Asc. Aorta4.6 cm IVSd1.2 (0.7-1.1cm)RV (D)3.7 (1.8-2.4cm) PWd1.2 (0.7-1.1cm) Mitral Valve MitralMitral Stenosis E wave0.49m/sMV Mean GR.mmHg A wave0.65m/sMV Peak GR.mmHg E/A ratio0.82D MVAcm2 DECEL [id number] 1/2 [place] Aortic Valve Aortic ValveAortic Stenosis V10.81m/[place] Mean GR.3mmHg V21.21m/[place] Peak GR.6mmHg LVOT Diameter2.4 (1.8-2.4cm)Doppler AVA3.03cm2 Pulmonic Valve V20.70m/s Tricuspid Valve TR Velocity2.20m/s [id number] Other Information Technically limited study due to body habitus. Conclusion Sinus rhythm. Concentric LVH with biatrial enlargement. Aortic root enlargement. Dilation of the sinuses of Valsa lva. Mild aortic sclerosis. No significant stenosis. Mild mitral annular calcification. Left ventricular function is preserved at 50% with normal RV function. Mild TR. RVSP at 22 mmHg. No pericardial effusion masses or vegetations.
[2025-04-30] MEDS: hydrALAZINE HCL 20 MG/ML VL IV ONE (16:43)
[2025-04-30] MEDS ORDERED: ATORVASTATIN 20 MG TAB PO SCH (22:00)
== END 2025-04-30 19:04 | disposition home or self-care (01) | DRG 690 ==
LOC: ER 09:16 → OVERFLOW 15:24 → CENTRAL 04-29 13:15
PROVIDERS: ADMIT Internal Medicine; ATTEND Urology
DX: N30.01 Acute cystitis with hematuria (principal); I50.32 Chronic diastolic (congestive) heart failure; I13.0 Hypertensive heart and chronic kidney disease with heart failure and stage 1 through stage 4 chronic kidney disease, or unspecified chronic kidney disease; C64.9 Malignant neoplasm of unspecified kidney, except renal pelvis; E78.5 Hyperlipidemia, unspecified; I48.91 Unspecified atrial fibrillation; E11.22 Type 2 diabetes mellitus with diabetic chronic kidney disease; N18.30 Chronic kidney disease, stage 3 unspecified; Z85.46 Personal history of malignant neoplasm of prostate; Z86.718 Personal history of other venous thrombosis and embolism; Z79.899 Other long term (current) drug therapy; Z79.01 Long term (current) use of anticoagulants; Z95.0 Presence of cardiac pacemaker
CPT/HCPCS: 36415; 71045; 74176; 80048; 80053; 80076; 81001; 82306; 82607; 82746; 82962; 83036; 83605; 83735; 83880; 84154; 84443; 85025; 85610; 85730; 87086; 93306; 93970; 96360; G0378; J1815